=== PATIENT | male | born 1975 | race Caucasian/White ===

== ENCOUNTER 2020-11-22 15:45 | Emergency (ER) | payer OTHER ==
[2020-11-22 16:25] VITALS: BP 135/80; PULSE 74; TEMP 98.5; BMI 28.3
[2020-11-22] MEDS ORDERED: IBUPROFEN 400 MG TABLET (FP) PO ONE ×2 (18:28→18:32)
[2020-11-22] MEDS ORDERED: DIPHTH,PERTUSS(ACELL),TET 0.5 ML DISP.SYRIN IM ONE ×2 (18:33→18:44)
== END 2020-11-22 22:37 | disposition home or self-care (01) ==
LOC: JERFT 15:45
PROC: 0HQKXZZ Repair Right Lower Leg Skin, External Approach (ICD-10-PCS; principal; 2020-11-22)
PROC: 3E0234Z Introduction of Serum, Toxoid and Vaccine into Muscle, Percutaneous Approach (ICD-10-PCS; 2020-11-22)
DX: S91.011A Laceration without foreign body, right ankle, initial encounter (principal); W26.8XXA Contact with other sharp object(s), not elsewhere classified, initial encounter; Y92.9 Unspecified place or not applicable
CPT/HCPCS: 12001-25; 90471; 90715; 99284-25